=== PATIENT | female | born 1965 | race Caucasian/White ===

== ENCOUNTER 2019-05-31 06:27 | Emergency (ER) | payer BC ==
[~2019-05-31] VITALS: Ht 165.1 cm; Wt 82.0 kg
[2019-05-31] MEDS ORDERED: loperamide 2mg capsule PO ONE (06:35)
[2019-05-31] MEDS ORDERED: ondansetron/PF 4mg/2ml inj IV ONE (06:35)
[2019-05-31] MEDS ORDERED: normal saline 1000ML IV soln IVB ONE (06:35)
--- NOTE | 2019-05-31 07:53 | NUR ---
PT REDRAWN DUE TO FIRST DRAW WAS NOT GOOD.
[2019-05-31 08:07] LABS: BASOPHILS % (AUTO) 0.1 % (0-1); EOSINOPHILS % (AUTO) 0.6 % (0-6); HEMOGLOBIN 11.3 g/dl (12.0-16.0); LYMPHOCYTES # (AUTO) 0.6 X10'3 (1.1-4.8); LYMPHOCYTES % (AUTO) 9.2 % (21-51); MEAN CORPUSCULAR HEMOGLOBIN 30.2 PG (27.0-31.0); MEAN CORPUSCULAR HGB CONC 35.4 g/dL (33.0-36.5); MEAN CORPUSCULAR VOLUME 85.3 FL (78-98); MEAN PLATELET VOLUME 7.2 FL (7.4-10.4); MONOCYTES # (AUTO) 0.7 X10'3 (0-0.9); NEUTROPHILS # (AUTO) 4.7 X10'3 (1.8-7.7); NEUTROPHILS % (AUTO) 78.1 % (42-75); PLATELET COUNT 209 X10'3 (140-440); RED BLOOD COUNT 3.76 X10'6 (4.20-5.60); RED CELL DISTRIBUTION WIDTH 14.2 % (11.5-14.5)
[2019-05-31 08:13] LABS: ALANINE AMINOTRANSFERASE 24 U/L (12-78); ALKALINE PHOSPHATASE 24 IU/L (46-116); ANION GAP 6 (8-16); ASPARTATE AMINO TRANSFERASE 16 U/L (10-37); BILIRUBIN,TOTAL 0.5 MG/DL (0.1-1.0); BLOOD UREA NITROGEN 10 MG/DL (7-18); BUN/CREATININE RATIO 13.5 (6.6-38.0); CALCIUM 7.4 MG/DL (8.5-10.1); CHLORIDE 104 MMOL/L (99-107); CREATININE 0.74 MG/DL (0.40-0.90); GLUCOSE 99 MG/DL (70-104); POTASSIUM 3.1 MMOL/L (3.5-5.1); SODIUM 134 MMOL/L (135-145); TOTAL CARBON DIOXIDE 23.6 MMOL/L (24-32); eGFR 81 ML/MIN
[2019-05-31 08:16] LABS: TROPONIN I < 0.04 NG/ML (0.0-0.05)
[2019-05-31] MEDS ORDERED: normal saline 1000ml 1,000 ML IV ONE (08:50)
[2019-05-31] MEDS ORDERED: ketorolac trometh. 30mg/ml inj. IV ONE (08:50)
[2019-05-31] MEDS ORDERED: potassium Cl 20 mEq SR tablet PO STA (09:03)
[2019-05-31 09:16] LABS: CLARITY,URINE SLIGHTLY CLOUDY (Clear); COLOR,URINE YELLOW (Yellow); GLUCOSE, URINE NEGATIVE (Neg); KETONES,URINE NEGATIVE (Neg); LEUKOCYTE ESTERASE ,URINE TRACE (Neg); NITRITES, URINE NEGATIVE (Neg); OCCULT BLOOD,URINE NEGATIVE (Neg); PH,URINE 6.5 (4.8-8.0); PROTEIN,URINE TRACE mg/dl (Neg); UROBILINOGEN,URINE 0.2 E.U/dL (0.2-1.0)
[2019-05-31 09:36] LABS: UA COLLECTION TYPE VOIDED
[2019-05-31 09:52] LABS: MUCUS STRANDS FEW /LPF (Neg); SQUAMOUS EPITHELIAL CELL,UR MANY /LPF (FEW)
[2019-05-31 09:53] LABS: BACTERIA,URINE FEW /HPF (Neg); RBC,URINE 0-2 /HPF (0-2)
[2019-05-31] MEDS ORDERED: ONDA8TAB6 PO (10:03)
[2019-05-31] MEDS ORDERED: LOPE2TAB25 PO (10:03)
[2019-05-31] MEDS ORDERED: POTA20TA19 PO (10:03)
--- NOTE | 2019-05-31 10:19 | NUR ---
PROVIDER IN TO TO DISCUSS DC INFO. PT REQUESTING LAB AND CT RESULTS. PT SIGNS A MEDICAL RELEASE OF INFORMATION.
--- NOTE | 2019-05-31 10:39 | NUR ---
PT HAS CALLED HER FOR RIDE AND IS WAITING IN ROOM.
[2019-05-31 10:41] VITALS: BP 111/58
== END 2019-05-31 11:13 | disposition home or self-care (01) ==
LOC: ER 06:29
DX: K52.9 Noninfective gastroenteritis and colitis, unspecified (principal); Z79.899 Other long term (current) drug therapy
CPT/HCPCS: 36415; 70450; 71045; 80053; 81001; 84484; 85025; 93005; 96361; 96374; 96375; 99284; J1885; J2405; J7030